=== PATIENT | female | born 1960 | race Caucasian/White ===

== ENCOUNTER 2022-11-24 10:46 | Inpatient (IN) | payer BC ==
[~2022-11-24] VITALS: Ht 177.8 cm; Wt 67.0 kg
[2022-11-24] VITALS (25 sets, daily range): BP systolic 85–140; BP diastolic 65–112; PULSE 59–79; RESP 14–22; TEMP 97.9–98.5; O2SAT 91–100
[~2022-11-24 10:46] MED LIST: ASPI-1397 PO; BUPIVAcaine/PF 2.5 mg/ml (0.25%) 30ml vial ONE; GABA-530 PO; HYDR-3965 PO; LISI10TA27 PO; MULT-1074 PO; albuterol 2.5 MG/3 ML nebule NEB ONE; cefazolin 2gm/D5W 100mL 100 ML IV ONE; famotidine 20mg tablet PO ONE; ringers solution, lacted 1,000 ML IV SCH
[2022-11-24 11:54] LABS: BASOPHILS # (AUTO) 0.1 X10'3 (0-0.2); BASOPHILS % (AUTO) 1.4 % (0-1); EOSINOPHILS # (AUTO) 0.2 X10'3 (0-0.9); EOSINOPHILS % (AUTO) 2.9 % (0-6); LYMPHOCYTES # (AUTO) 1.8 X10'3 (1.1-4.8); LYMPHOCYTES % (AUTO) 33.8 % (21-51); MEAN CORPUSCULAR HEMOGLOBIN 32.9 PG (27.0-31.0); MEAN CORPUSCULAR VOLUME 99.7 FL (78-98); MEAN PLATELET VOLUME 8.5 FL (7.4-10.4); MONOCYTES # (AUTO) 0.4 X10'3 (0-0.9); MONOCYTES % (AUTO) 7.6 % (2-12); NEUTROPHILS # (AUTO) 2.9 X10'3 (1.8-7.7); NEUTROPHILS % (AUTO) 54.3 % (42-75); PRE OP HEMATOCRIT 44.3 % (35.0-45.0); PRE OP HEMOGLOBIN 14.6 g/dL (12.0-16.0); PRE OP PLATELET COUNT 311 X10'3 (140-440); PRE OP WHITE BLOOD COUNT 5.3 10'3 (4.8-10.8); RED BLOOD COUNT 4.44 X10'6 (4.20-5.60); RED CELL DISTRIBUTION WIDTH 12.9 % (11.5-14.5)
[2022-11-24 12:09] LABS: ALBUMIN 3.3 G/DL (3.4-5.0); ALBUMIN/GLOBULIN RATIO 1.1 (1.1-1.5); ALKALINE PHOSPHATASE 72 IU/L (46-116); BLOOD UREA NITROGEN 17 MG/DL (7-18); BUN/CREATININE RATIO 18.9 (10.0-20.0); CALCIUM 9.2 MG/DL (8.5-10.1); CHLORIDE 106 MMOL/L (99-107); PRE OP ALT 21 U/L (30-65); PRE OP ANION GAP 7 (8-16); PRE OP AST 24 U/L (10-37); PRE OP BILIRUB, TOTAL 0.4 MG/DL (0.0-1.0); PRE OP GLUCOSE 92 MG/DL (70-104); PRE OP POTASSIUM 4.1 MMOL/L (3.4-5.1); PRE OP SODIUM 141 MMOL/L (135-145); TOTAL CARBON DIOXIDE 27.9 MMOL/L (24-32); TOTAL PROTEIN 6.3 G/DL (6.4-8.2); eCRCL 70 ML/MIN; eGFR 64 ML/MIN
[2022-11-24] MEDS ORDERED: BUPIVAcaine/PF 2.5mg/ml (0.25%) 10ml vial ONE (14:10)
[2022-11-24] MEDS ORDERED: povidone-iodine 10% ointment 1 APPLIC APPLIC TP ONE (14:10)
[2022-11-24] MEDS ORDERED: ondansetron/PF 4mg/2ml inj IV PRN ×2 (14:40→17:15)
[2022-11-24] MEDS ORDERED: ringers solution, lacted 1,000 ML IV SCH (14:40)
[2022-11-24] MEDS ORDERED: proCHLORperazine 10 MG/2 ml inj IV PRN (14:40)
[2022-11-24] MEDS ORDERED: meperidine/PF 25mg/ml syringe IV PRN ×3 (14:40)
[2022-11-24] MEDS ORDERED: morphine 2 MG/ML inj. syringe IV PRN (14:40)
[2022-11-24] MEDS ORDERED: morphine 4 MG/ML inj SYRINge IV PRN (14:40)
[2022-11-24] MEDS ORDERED: sevoflurane 250ml liquid IH ONE (15:32)
[2022-11-24] MEDS ORDERED: ondansetron/PF 4mg/2ml inj ONE (15:32)
[2022-11-24] MEDS ORDERED: ePHEDrine 50MG/ML INJ. ONE (15:32)
[2022-11-24] MEDS ORDERED: MIDAZolam 1 MG/ML 5ML VIAL ONE (15:37)
[2022-11-24] MEDS ORDERED: fentaNYL/PF 50MCG/1 ML 2ML syringe ONE (15:37)
[2022-11-24] MEDS ORDERED: propofol inj 20 ML IV ONE (15:56)
[2022-11-24] MEDS ORDERED: LIDOcaine 1%/PF 5ML 10 MG/ML VIAL ONE (15:56)
[2022-11-24] MEDS ORDERED: dexamethasone sod phosphate 4mg/ml inj. ONE (15:56)
[2022-11-24] MEDS ORDERED: tobramycin sulfate 1.2gm vial ONE (16:25)
[2022-11-24] MEDS ORDERED: vancomycin 1,000mg inj ONE (16:26)
[2022-11-24] MEDS ORDERED: tobramycin 40mg/ml inj ONE (16:28)
[2022-11-24] MEDS ORDERED: bacitracin 15gm ointment TP ONE (16:58)
--- NOTE | 2022-11-24 17:07 | NUR ---
Received from OR via [facility], accompanied by Anesthesiologist and report given by Anesthesiologist, DR. OLIVA. PATIENT WAKING UP, NO S/S OF PAIN, V/S WNL, SCD ON, 20G TO R.FA, LEFT FOOT PETE WRAP DRESSING CDI. PATIENT GIVEN FOAM ELEVATER FOR FOOT.
[2022-11-24] MEDS ORDERED: magnesium 2GM in 50ml NS 50 ML IV PRN (17:15)
[2022-11-24] MEDS ORDERED: magnesium Cl slow-release 64mg tablet PO PRN (17:15)
[2022-11-24] MEDS ORDERED: potassium Cl 20 mEq SR tablet PO PRN ×2 (17:15)
[2022-11-24] MEDS ORDERED: acetaminophen 325mg tablet PO PRN (17:15)
[2022-11-24] MEDS ORDERED: mag hydrox/Alum hydrox/simeth 30ml oral suspension PO PRN (17:15)
[2022-11-24] MEDS ORDERED: potassium Cl 40MEQ/1/2NS 520ml 520 ML IV PRN (17:15)
[2022-11-24] MEDS ORDERED: magnesium 4gm in 100ml NS 100 ML IV PRN (17:15)
[2022-11-24] MEDS ORDERED: magnesium hydroxide 30ml (MOM) UD suspension PO PRN (17:15)
--- NOTE | 2022-11-24 18:57 | NUR ---
PATIENT MEETS DISCHARGE CRITERIA FROM [facility]. DENIES PAIN. PATIENT IS UPSET SHE IS BEING ADMITTED. EDUCATION PROVIDED ON ANTIBIOTIC THERAPY NECESSITY. LEFT FOOT DRESSING CDI. Addendum: 11/24/22 at 1906 by Dayami Floyd RN REPORT GIVEN TO TIEN, NURSE AT BEDSIDE. PATIENT TRANSFERRED FROM [facility] TO BED. PATIENT'S FRIEND, TOÑITO ESCORTED TO ROOM. MEAL TRAY DELIVERED.
[2022-11-24] MEDS: K and/or MAG REPLACEMENT MC SCH (20:00)
[2022-11-24] MEDS ORDERED: HYDROcodone/acetaminophen 5mg/325mg tablet PO PRN (20:00)
[2022-11-24] MEDS: vancomycin/NS 1 GM ADD-VANTAGE 250 ML IV SCH (20:41)
[2022-11-24] MEDS: gabapentin 100mg capsule PO SCH (20:41)
[2022-11-24] MEDS: docusate sod 100mg capsule PO SCH (20:42)
[2022-11-24] MEDS ORDERED: haloperidol 5mg tablet PO PRN (21:15)
[2022-11-24] MEDS ORDERED: LORazepam 2 mg/ml vial IV PRN (21:15)
[2022-11-24] MEDS ORDERED: dextrose 50%-water 50ml dispensing syringe IV PRN (21:15)
[2022-11-24] MEDS ORDERED: haloperidol lactate 5mg/ml inj IM PRN (21:15)
[2022-11-24] MEDS ORDERED: LORazepam 1 MG tablet PO PRN (21:15)
[2022-11-24] MEDS: nicotine 21mg patch - 24 hr TD SCH (21:31)
[2022-11-25] MEDS: cefepime 2g/NS 100ml ADVANTAGE 100 ML IV SCH ×3 (00:08→15:57)
--- NOTE | 2022-11-25 01:00 | NUR ---
Patient returned from PACU about 1845. patient used bedside commode with Ax1. Resting comfortably, no pain at this time. IV abx started per orders. LR at 100ml running per Dr Shi verbal order continue to run until morning.Patient tolerating diet. Denies nausea, no emesis. no flatus but BS+. Slept well most of night, pain medication given x1.
[2022-11-25 01:48] VITALS: BP 115/78; PULSE 79; RESP 16; TEMP 98.8; O2SAT 95
[2022-11-25] MEDS: HYDROcodone/acetaminophen 10/325mg tab PO PRN ×3 (03:52→21:11)
--- NOTE | 2022-11-25 06:35 | NUR ---
Problems reprioritized. Patient report given, questions answered & plan of care reviewed with Aditya BARR.
--- NOTE | 2022-11-25 06:46 | NUR ---
Patient in room ORTHO 4007. I have received report from TIEN BARR and had the opportunity to ask questions and assume patient care.
[2022-11-25 06:51] VITALS: BP 135/87; PULSE 68; RESP 16; TEMP 97.6; O2SAT 98
[2022-11-25] MEDS: vancomycin/NS 1 GM ADD-VANTAGE 250 ML IV SCH ×2 (07:43→21:12)
[2022-11-25] MEDS: docusate sod 100mg capsule PO SCH (07:43)
[2022-11-25] MEDS: nicotine 21mg patch - 24 hr TD SCH (07:44)
[2022-11-25] MEDS: gabapentin 100mg capsule PO SCH ×3 (07:44→21:10)
[2022-11-25] MEDS: lisinopril 10 MG tablet PO SCH (07:44)
[2022-11-25 07:54] LABS: BASOPHILS # (AUTO) 0.1 X10'3 (0-0.2); BASOPHILS % (AUTO) 0.6 % (0-1); EOSINOPHILS % (AUTO) 0.2 % (0-6); HEMATOCRIT 43.5 % (35.0-45.0); HEMOGLOBIN 14.4 g/dl (12.0-16.0); LYMPHOCYTES # (AUTO) 1.3 X10'3 (1.1-4.8); LYMPHOCYTES % (AUTO) 13.2 % (21-51); MEAN CORPUSCULAR HEMOGLOBIN 32.8 PG (27.0-31.0); MEAN CORPUSCULAR VOLUME 99.4 FL (78-98); MEAN PLATELET VOLUME 8.9 FL (7.4-10.4); MONOCYTES # (AUTO) 0.5 X10'3 (0-0.9); MONOCYTES % (AUTO) 4.9 % (2-12); NEUTROPHILS # (AUTO) 8.1 X10'3 (1.8-7.7); NEUTROPHILS % (AUTO) 81.1 % (42-75); PLATELET COUNT 331 X10'3 (140-440); RED BLOOD COUNT 4.38 X10'6 (4.20-5.60); RED CELL DISTRIBUTION WIDTH 12.7 % (11.5-14.5); WHITE BLOOD COUNT 9.9 X10'3 (4.5-11.0)
[2022-11-25] MEDS ORDERED: folic acid 1mg/0.2ml inj IV SCH (08:00)
[2022-11-25] MEDS: K and/or MAG REPLACEMENT MC SCH ×2 (08:00→20:00)
[2022-11-25] MEDS ORDERED: thiamine 100mg/ml 2ml inj. IV SCH (08:00)
[2022-11-25 08:06] LABS: ALANINE AMINOTRANSFERASE 18 U/L (12-78); ALBUMIN 3.1 G/DL (3.4-5.0); ALBUMIN/GLOBULIN RATIO 1.1 (1.1-1.5); ALKALINE PHOSPHATASE 76 IU/L (46-116); ANION GAP 8 (8-16); ASPARTATE AMINO TRANSFERASE 18 U/L (10-37); BILIRUBIN,TOTAL 0.4 MG/DL (0.1-1.0); BLOOD UREA NITROGEN 15 MG/DL (7-18); BUN/CREATININE RATIO 17.2 (10.0-20.0); CHLORIDE 106 MMOL/L (99-107); CREATININE 0.87 MG/DL (0.40-0.90); GLUCOSE 104 MG/DL (70-104); MAGNESIUM 1.9 MG/DL (1.5-2.4); POTASSIUM 3.9 MMOL/L (3.5-5.1); SODIUM 141 MMOL/L (135-145); TOTAL CARBON DIOXIDE 26.9 MMOL/L (24-32); eCRCL 73 ML/MIN; eGFR 66 ML/MIN
[2022-11-25 11:34] VITALS: RESP 16; O2SAT 96
[2022-11-25 13:26] VITALS: BP 116/75; PULSE 81; RESP 16; TEMP 98.2; O2SAT 96
--- NOTE | 2022-11-25 18:30 | NUR ---
Patient in room ORTHO 4007. I have received report from NAVNEET and had the opportunity to ask questions and assume patient care.
--- NOTE | 2022-11-25 18:36 | NUR ---
Problems reprioritized. Patient report given TO AXEL BARR, questions answered & plan of care reviewed with .
[2022-11-25 19:00] VITALS: BP 138/85; PULSE 82; RESP 16; TEMP 98.4; O2SAT 94; O2SAT 96
[2022-11-25 22:00] VITALS: BP 130/87; PULSE 83; RESP 16; TEMP 98.3; O2SAT 94
[2022-11-26] MEDS: cefepime 2g/NS 100ml ADVANTAGE 100 ML IV SCH ×3 (00:08→16:05)
[2022-11-26] MEDS: HYDROcodone/acetaminophen 10/325mg tab PO PRN ×7 (01:16→22:54)
--- NOTE | 2022-11-26 06:00 | NUR ---
Problems reprioritized. Patient report given, questions answered & plan of care reviewed with
--- NOTE | 2022-11-26 06:15 | NUR ---
Patient in room ORTHO 4007. I have received report from maryellen BARR and had the opportunity to ask questions and assume patient care.
[2022-11-26 06:19] LABS: HEMOGLOBIN 12.8 g/dl (12.0-16.0)
[2022-11-26 06:20] LABS: BASOPHILS % (AUTO) 0.6 % (0-1); EOSINOPHILS # (AUTO) 0.2 X10'3 (0-0.9); EOSINOPHILS % (AUTO) 2.3 % (0-6); HEMATOCRIT 38.2 % (35.0-45.0); LYMPHOCYTES # (AUTO) 2.3 X10'3 (1.1-4.8); LYMPHOCYTES % (AUTO) 31.8 % (21-51); MEAN CORPUSCULAR HEMOGLOBIN 33.4 PG (27.0-31.0); MEAN CORPUSCULAR HGB CONC 33.6 g/dL (33.0-36.5); MEAN CORPUSCULAR VOLUME 99.4 FL (78-98); MEAN PLATELET VOLUME 8.9 FL (7.4-10.4); MONOCYTES # (AUTO) 0.7 X10'3 (0-0.9); MONOCYTES % (AUTO) 9.9 % (2-12); NEUTROPHILS % (AUTO) 55.4 % (42-75); PLATELET COUNT 273 X10'3 (140-440); RED BLOOD COUNT 3.84 X10'6 (4.20-5.60); RED CELL DISTRIBUTION WIDTH 12.9 % (11.5-14.5); WHITE BLOOD COUNT 7.3 X10'3 (4.5-11.0)
[2022-11-26 06:29] LABS: ALANINE AMINOTRANSFERASE 26 U/L (12-78); ALBUMIN 2.6 G/DL (3.4-5.0); ALKALINE PHOSPHATASE 65 IU/L (46-116); ANION GAP 6 (8-16); ASPARTATE AMINO TRANSFERASE 32 U/L (10-37); BILIRUBIN,TOTAL 0.2 MG/DL (0.1-1.0); BLOOD UREA NITROGEN 21 MG/DL (7-18); BUN/CREATININE RATIO 22.6 (10.0-20.0); CALCIUM 8.5 MG/DL (8.5-10.1); CHLORIDE 107 MMOL/L (99-107); CREATININE 0.93 MG/DL (0.40-0.90); GLUCOSE 93 MG/DL (70-104); MAGNESIUM 1.7 MG/DL (1.5-2.4); POTASSIUM 4.3 MMOL/L (3.5-5.1); SODIUM 141 MMOL/L (135-145); TOTAL CARBON DIOXIDE 27.7 MMOL/L (24-32); TOTAL PROTEIN 5.1 G/DL (6.4-8.2); eCRCL 68 ML/MIN; eGFR 61 ML/MIN
[2022-11-26 06:56] VITALS: BP 122/80; PULSE 59; RESP 16; TEMP 98.8; O2SAT 98
[2022-11-26] MEDS: K and/or MAG REPLACEMENT MC SCH ×2 (08:00→20:00)
[2022-11-26] MEDS: vancomycin/NS 1 GM ADD-VANTAGE 250 ML IV SCH ×2 (08:09→19:40)
[2022-11-26] MEDS: gabapentin 100mg capsule PO SCH ×3 (08:09→20:30)
[2022-11-26] MEDS: lisinopril 10 MG tablet PO SCH (08:10)
[2022-11-26] MEDS: nicotine 21mg patch - 24 hr TD SCH (08:11)
[2022-11-26 09:42] VITALS: RESP 16; O2SAT 98
[2022-11-26] MEDS ORDERED: bisacodyl 5mg tablet.DR PO PRN (11:10)
[2022-11-26 13:03] VITALS: BP 112/76; PULSE 80; RESP 16; TEMP 98.5; O2SAT 97
[2022-11-26 18:00] VITALS: BP 125/85; PULSE 84; RESP 16; TEMP 97.9; O2SAT 94
--- NOTE | 2022-11-26 18:36 | NUR ---
Problems reprioritized. Patient report given TO AXEL BARR, questions answered & plan of care reviewed with .
--- NOTE | 2022-11-26 19:00 | NUR ---
Patient in room ORTHO 4007. I have received report from MOMO Calderon and had the opportunity to ask questions and assume patient care. Addendum: 11/26/22 at 2313 by Caron Dumont RN Amended: Links added.
[2022-11-26 19:10] VITALS: RESP 16; O2SAT 94
[2022-11-26] MEDS ORDERED: VANCOMYCIN LEVEL IV ONE (21:30)
[2022-11-26 22:00] VITALS: BP 115/86; PULSE 77; RESP 16; TEMP 98.7; O2SAT 94
[2022-11-27] MEDS: cefepime 2g/NS 100ml ADVANTAGE 100 ML IV SCH ×3 (00:10→15:35)
--- NOTE | 2022-11-27 06:41 | NUR ---
Patient in room ORTHO 4007. I have received report from DIRK BARR and had the opportunity to ask questions and assume patient care.
[2022-11-27] MEDS ORDERED: VANCOMYCIN LEVEL IV ONE (07:30)
[2022-11-27 07:37] LABS: BASOPHILS # (AUTO) 0.1 X10'3 (0-0.2); BASOPHILS % (AUTO) 0.9 % (0-1); EOSINOPHILS # (AUTO) 0.2 X10'3 (0-0.9); EOSINOPHILS % (AUTO) 2.6 % (0-6); HEMATOCRIT 43.5 % (35.0-45.0); HEMOGLOBIN 14.3 g/dl (12.0-16.0); LYMPHOCYTES # (AUTO) 1.3 X10'3 (1.1-4.8); LYMPHOCYTES % (AUTO) 19.5 % (21-51); MEAN CORPUSCULAR HEMOGLOBIN 32.6 PG (27.0-31.0); MEAN CORPUSCULAR HGB CONC 32.8 g/dL (33.0-36.5); MEAN CORPUSCULAR VOLUME 99.1 FL (78-98); MEAN PLATELET VOLUME 8.6 FL (7.4-10.4); MONOCYTES # (AUTO) 0.5 X10'3 (0-0.9); MONOCYTES % (AUTO) 7.5 % (2-12); NEUTROPHILS # (AUTO) 4.6 X10'3 (1.8-7.7); NEUTROPHILS % (AUTO) 69.5 % (42-75); PLATELET COUNT 288 X10'3 (140-440); RED BLOOD COUNT 4.39 X10'6 (4.20-5.60); RED CELL DISTRIBUTION WIDTH 12.6 % (11.5-14.5); WHITE BLOOD COUNT 6.6 X10'3 (4.5-11.0)
[2022-11-27] MEDS: nicotine 21mg patch - 24 hr TD SCH (07:53)
[2022-11-27] MEDS: lisinopril 10 MG tablet PO SCH (07:54)
[2022-11-27] MEDS: gabapentin 100mg capsule PO SCH ×3 (07:54→20:12)
[2022-11-27] MEDS: vancomycin/NS 1 GM ADD-VANTAGE 250 ML IV SCH ×2 (07:54→20:52)
[2022-11-27] MEDS: HYDROcodone/acetaminophen 10/325mg tab PO PRN ×3 (07:54→20:12)
[2022-11-27 08:00] VITALS: BP 121/87; PULSE 68; RESP 16; TEMP 98.2; O2SAT 97
[2022-11-27] MEDS: K and/or MAG REPLACEMENT MC SCH ×2 (08:00→20:00)
[2022-11-27 10:18] VITALS: RESP 16; O2SAT 97
[2022-11-27 10:40] LABS: ALANINE AMINOTRANSFERASE 31 U/L (12-78); ALBUMIN 2.9 G/DL (3.4-5.0); ALKALINE PHOSPHATASE 76 IU/L (46-116); ANION GAP 6 (8-16); ASPARTATE AMINO TRANSFERASE 33 U/L (10-37); BILIRUBIN,TOTAL 0.5 MG/DL (0.1-1.0); BLOOD UREA NITROGEN 16 MG/DL (7-18); CALCIUM 9.3 MG/DL (8.5-10.1); CHLORIDE 104 MMOL/L (99-107); CREATININE 0.89 MG/DL (0.40-0.90); GLUCOSE 101 MG/DL (70-104); MAGNESIUM 1.9 MG/DL (1.5-2.4); POTASSIUM 4.2 MMOL/L (3.5-5.1); SODIUM 139 MMOL/L (135-145); TOTAL CARBON DIOXIDE 29.3 MMOL/L (24-32); TOTAL PROTEIN 5.9 G/DL (6.4-8.2); VANCOMYCIN,TROUGH 15.4 UG/ML (6.0-14.0); eCRCL 71 ML/MIN; eGFR 65 ML/MIN
[2022-11-27 11:50] VITALS: BP 112/71; PULSE 79; RESP 16; TEMP 98.2; O2SAT 92
--- NOTE | 2022-11-27 17:15 | NUR ---
WOC note: Consult canceled. Patient has sutured surgical wound with CDI dressing. No packing required.
[2022-11-27 18:00] VITALS: BP 122/77; PULSE 81; RESP 16; TEMP 98.6; O2SAT 94
--- NOTE | 2022-11-27 18:42 | NUR ---
Problems reprioritized. Patient report given TO DEWAYNE RN, questions answered & plan of care reviewed with .
[2022-11-27 19:00] VITALS: RESP 16; O2SAT 94
--- NOTE | 2022-11-27 20:00 | NUR ---
Agree with assessments done by Anahi Moralez except what I charted.
[2022-11-27 22:00] VITALS: BP 93/55; PULSE 61; RESP 15; TEMP 98.3; O2SAT 91
[2022-11-28] MEDS: cefepime 2g/NS 100ml ADVANTAGE 100 ML IV SCH ×2 (00:21→09:49)
[2022-11-28 06:06] LABS: BASOPHILS # (AUTO) 0.1 X10'3 (0-0.2); BASOPHILS % (AUTO) 0.8 % (0-1); EOSINOPHILS # (AUTO) 0.3 X10'3 (0-0.9); EOSINOPHILS % (AUTO) 4.3 % (0-6); HEMATOCRIT 42.9 % (35.0-45.0); HEMOGLOBIN 14.3 g/dl (12.0-16.0); LYMPHOCYTES # (AUTO) 1.3 X10'3 (1.1-4.8); LYMPHOCYTES % (AUTO) 19.3 % (21-51); MEAN CORPUSCULAR HEMOGLOBIN 33.1 PG (27.0-31.0); MEAN CORPUSCULAR HGB CONC 33.5 g/dL (33.0-36.5); MEAN CORPUSCULAR VOLUME 98.9 FL (78-98); MEAN PLATELET VOLUME 8.9 FL (7.4-10.4); MONOCYTES # (AUTO) 0.7 X10'3 (0-0.9); MONOCYTES % (AUTO) 9.9 % (2-12); NEUTROPHILS # (AUTO) 4.4 X10'3 (1.8-7.7); NEUTROPHILS % (AUTO) 65.7 % (42-75); PLATELET COUNT 271 X10'3 (140-440); RED BLOOD COUNT 4.33 X10'6 (4.20-5.60); RED CELL DISTRIBUTION WIDTH 12.6 % (11.5-14.5); WHITE BLOOD COUNT 6.8 X10'3 (4.5-11.0)
[2022-11-28 06:26] LABS: ALANINE AMINOTRANSFERASE 27 U/L (12-78); ALBUMIN 2.7 G/DL (3.4-5.0); ALBUMIN/GLOBULIN RATIO 0.9 (1.1-1.5); ALKALINE PHOSPHATASE 76 IU/L (46-116); ANION GAP 6 (8-16); ASPARTATE AMINO TRANSFERASE 24 U/L (10-37); BILIRUBIN,TOTAL 0.5 MG/DL (0.1-1.0); BLOOD UREA NITROGEN 17 MG/DL (7-18); BUN/CREATININE RATIO 19.5 (10.0-20.0); CALCIUM 9.2 MG/DL (8.5-10.1); CHLORIDE 106 MMOL/L (99-107); CREATININE 0.87 MG/DL (0.40-0.90); GLUCOSE 98 MG/DL (70-104); SODIUM 140 MMOL/L (135-145); TOTAL PROTEIN 5.7 G/DL (6.4-8.2); eCRCL 73 ML/MIN; eGFR 66 ML/MIN
[2022-11-28 07:53] VITALS: BP_SYST 104; PULSE 66
[2022-11-28] MEDS: nicotine 21mg patch - 24 hr TD SCH (07:53)
[2022-11-28] MEDS: lisinopril 10 MG tablet PO SCH (07:53)
[2022-11-28] MEDS: HYDROcodone/acetaminophen 10/325mg tab PO PRN ×2 (07:53→12:33)
[2022-11-28] MEDS: gabapentin 100mg capsule PO SCH ×2 (07:53→12:33)
[2022-11-28] MEDS: K and/or MAG REPLACEMENT MC SCH (08:00)
[2022-11-28 09:58] VITALS: RESP 16; O2SAT 95
[2022-11-28] MEDS: vancomycin/NS 1 GM ADD-VANTAGE 250 ML IV SCH (12:13)
[2022-11-28 13:33] VITALS: RESP 17
--- NOTE | 2022-11-28 14:57 | NUR ---
discharge patient to home where she will get long-term antibiotics. patient left with family in wheelchair. no c/o pain or discomfort at this time. vital signs stable.
[2022-11-29] MEDS ORDERED: thiamine 100mg tablet PO SCH (08:00)
[2022-11-29] MEDS ORDERED: folic acid 1mg tablet PO SCH (08:00)
== END 2022-11-28 17:13 | disposition home or self-care (01) | DRG 478 ==
LOC: PAS 10:46 → ORTHO 4S 17:26
PROVIDERS: ADMIT Podiatrist Foot & Ankle Surgery; ATTEND Internal Medicine
PROC: 3E0U029 Introduction of Other Anti-infective into Joints, Open Approach (ICD-10-PCS; 2022-11-24)
PROC: 3E0T3BZ Introduction of Anesthetic Agent into Peripheral Nerves and Plexi, Percutaneous Approach (ICD-10-PCS; 2022-11-24)
PROC: 3E0T33Z Introduction of Anti-inflammatory into Peripheral Nerves and Plexi, Percutaneous Approach (ICD-10-PCS; 2022-11-24)
PROC: 0QBP0ZX Excision of Left Metatarsal, Open Approach, Diagnostic (ICD-10-PCS; principal; 2022-11-24 15:32)
PROC: 02HV33Z Insertion of Infusion Device into Superior Vena Cava, Percutaneous Approach (ICD-10-PCS; 2022-11-28)
PROC: B548ZZA Ultrasonography of Superior Vena Cava, Guidance (ICD-10-PCS; 2022-11-28)
DX: M00.9 Pyogenic arthritis, unspecified (principal); L03.116 Cellulitis of left lower limb; R26.9 Unspecified abnormalities of gait and mobility; E88.09 Other disorders of plasma-protein metabolism, not elsewhere classified; I10 Essential (primary) hypertension; Z72.0 Tobacco use; Z79.899 Other long term (current) drug therapy; Z88.5 Allergy status to narcotic agent; Z79.82 Long term (current) use of aspirin; Z71.6 Tobacco abuse counseling
CPT/HCPCS: 36569; Z7506; Z7508; 36415; 76942; 80053; 80202; 83605; 83735; 84145; 85025; 87040; 87070; 87075; 87081; 93005; 93926; 94640; 94760; 97116; 97161; 97530; A4618; A6222; A6223; A6446; A6449; A7000; C1713; C1751; G0378; J0690; J0692; J1100; J2250; J2405; J2704; J3010; J3260; J3370; J3490; J7120